=== PATIENT | female | born 1960 | race Caucasian/White ===

== ENCOUNTER 2017-01-24 11:53 | Day surgery (SDC) | payer OTHER ==
[2017-01-24] MEDS ORDERED: ceFAZolin 1 GM in NORMAL SALINE MINI-BAG+ 100 ML IV ONE ×2 (12:18→12:19)
[2017-01-24] MEDS ORDERED: NORMAL SALINE MINI-BAG+ 100 ML IV ONE (13:01)
[2017-01-24] MEDS ORDERED: ceFAZolin 1 GM/10 ML VIAL ONE (13:01)
[2017-01-24] MEDS ORDERED: SUCCINYLCHOLINE CHLORIDE 200 MG/10 ML VIAL ONE (13:13)
[2017-01-24] MEDS ORDERED: DEXAMETHASONE 10 MG/ML VIAL ONE (13:13)
[2017-01-24] MEDS ORDERED: KETOROLAC TROMETHAMINE 30 MG/ML VIAL ONE (13:13)
[2017-01-24] MEDS ORDERED: FENTANYL 100 MCG/2 ML VIAL ONE (13:13)
[2017-01-24] MEDS ORDERED: ONDANSETRON HCL 4 MG/2 ML VIAL ONE (13:13)
[2017-01-24] MEDS ORDERED: ROCURONIUM BROMIDE 50 MG/5 ML VIAL IV ONE (13:14)
[2017-01-24] MEDS ORDERED: BACITRACIN 50,000 UNITS VIAL IM ONE (13:16)
[2017-01-24] MEDS ORDERED: BUPIVACAINE/EPI 0.25% 1 VIAL VIAL ONE (13:16)
[2017-01-24] MEDS ORDERED: BACITRACIN 14 APP/14 GM TUBE TOPICAL ONE (13:16)
[2017-01-24] MEDS ORDERED: MEPERIDINE HCL/PF 50 MG/ML SYR IV PRN ×2 (16:00)
[2017-01-24] MEDS: MORPHINE SULFATE 10 MG/ML SYR IV PRN ×4 (16:19→16:50)
[2017-01-24] MEDS ORDERED: MORPHINE SULFATE/PF 10 MG/10 ML VIAL ONE (16:22)
[2017-01-24] MEDS ORDERED: NORMAL SALINE FLUSH 30 ML ONE (16:23)
[2017-01-24 16:45] VITALS: TEMP 99.3
[2017-01-24] MEDS ORDERED: MEPERIDINE HCL/PF 50 MG/ML SYR ONE (17:00)
[2017-01-24] MEDS ORDERED: NORMAL SALINE FLUSH 10 ML ONE (17:33)
--- NOTE | 2017-01-24 18:04 | OPERATIVE REPORT ---
DATE OF SURGERY: 01/24/17 SURGEON: Rohith Burch DO ANESTHESIA: General. PREOPERATIVE DIAGNOSIS: Right bimalleolar ankle fracture. POSTOPERATIVE DIAGNOSIS: Right bimalleolar ankle fracture. OPERATION PERFORMED: Right ankle open reduction, internal fixation. ESTIMATED BLOOD LOSS: Minimal. COMPLICATIONS: None. TOTAL TOURNIQUET TIME: 60 minutes. PROCEDURE NOTE: The patient was brought to the operating room suite and after administration of general anesthesia the right lower extremity was prepped and draped in a sterile fashion. The incision sites both medially and laterally were injected 0.25% bupivacaine with epinephrine prior to incision. The lateral dissection was down first avoiding all neurovascular structures and cauterizing any small bleeders with an electrocautery device. The leg was exsanguinated of blood with an Esmarch bandage prior to insufflation of the tourniquet. The lateral fibular fracture was not able to be reduced, therefore attention was drawn towards the medial malleolar fracture. A curvilinear incision was made over this side of the ankle and dissection was carried down. The patient did have some small pieces of bone and cartilage with some soft tissues in her positioning between the fracture fragments which was preventing the lateral malleolar fracture from being reduced. The medial malleolar fracture was subsequently reduced after removal of these fragments and stripping a small amount of periosteum for visualization purposes and to reduce the fracture. It was irrigated copiously with bacitracin infused with normal saline and was held in place with a sharp bone reduction clamp while 2 K-wires were inserted, followed by 2 long partially threaded 4-0 cannulated screws. This side of the ankle was closed utilizing 0 Vicryl for the deltoid ligament repair followed by 3-0 Vicryl, followed by 3-0 nylon in a modified horizontal mattress suture. Attention was then drawn back towards the lateral side of the ankle where the fracture was subsequently reduced. The fracture pattern was a Chevron orientation with an anterior process of the fibula also broken off. The 2 main fracture fragments were reduced and were locked in place utilizing a distal fibular locking plate with 3.5 screws in the shaft and multiple smaller locking screws distally. The anterior process of the distal fibular was also reduced and secured utilizing 2 fully threaded K-wires which were snipped off at the level of the bone surface. The ankle was then copiously irrigated with bacitracin infused with normal saline and the lateral side of the ankle was closed in the same fashion as the medial. The incisions were dressed with bacitracin ointment, Xeroform, 4x4s, ABDs, cast padding and a well padded Tri- Phelps plaster splint followed by application of an Yang bandage. The patient was transferred from the operating room suite to the recovery room in stable condition. ROYAL
[2017-01-24 18:19] VITALS: BP 142/93; O2SAT 91
[2017-01-24 18:24] VITALS: PULSE 82; RESP 20
--- NOTE | 2017-01-28 18:55 | RADIOLOGY REPORT ---
Two limited views of the right ankle from the C-Arm in the operating room without prior films for comparison demonstrates anatomically reduced fractures of the distal fibula and medial malleolus. The distal fibula fracture is secured with a plate and multiple screws. Two screws secure the medial malleolus. No other abnormality is identified. IMPRESSION: Open reduction and interval fixation of the distal fibula and medial malleolus as described. ROYAL
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
== END 2017-01-24 18:00 | disposition home or self-care (01) ==
LOC: SDS 11:53
PROVIDERS: ATTEND Orthopaedic Surgery
DX: S82.841A Displaced bimalleolar fracture of right lower leg, initial encounter for closed fracture (principal); X50.1XXA Overexertion from prolonged static or awkward postures, initial encounter
CPT/HCPCS: 76000; C1713; J0690; J1100; J1885; J2175; J2405; J2550; J3010